=== PATIENT | male | born 1985 | race Caucasian/White ===

== ENCOUNTER → 2024-12-23 | Outpatient (CLI) | payer BC ==
[~2024-12-23] MED LIST: METRONIDAZOLE500 MG PO; PERCOCET 325 MG1 TA2 PO; SENOKOT8.6 MG PO
== END ==
LOC: RAD 11:12
DX: M51.360 Other intervertebral disc degeneration, lumbar region with discogenic back pain only (principal); M43.16 Spondylolisthesis, lumbar region; M47.816 Spondylosis without myelopathy or radiculopathy, lumbar region; M48.061 Spinal stenosis, lumbar region without neurogenic claudication